=== PATIENT | female | born 1960 | race Caucasian/White ===

== ENCOUNTER 2023-09-30 16:47 | Inpatient (IN) | payer MEDICARE, OTHER ==
--- NOTE | 2023-09-30 17:13 | ED ---
General Adult HPI - General Chief complaint: Psychiatric Symptoms Stated complaint: Mental health eval Time Seen by Provider: 09/30/23 17:00 Source: patient, RN notes reviewed, old records reviewed Mode of arrival: EMS Limitations: no limitations - History of Present Illness Initial comments: This is a 63-year-old female who presents to the emergency department because she got an verbal altercation with her son and daughter and they called EMS and stated that the mother wanted to kill herself. Mother currently denies that end states that she made some statements that maybe it would be okay if God took her early. Patient states she is not suicidal it was just an argument to get out of hand. Patient has any alcohol or drug use. Patient states she has a history of atrial fibrillation but since her open heart surgery in May she has no adelaida gregoria had A-fib and she is off all blood thinners. Patient states after she got agitated she can feel her heart racing. Patient states she is also been experiencing chest pain since yesterday. Patient denies any difficulty breathing or shortness of breath. Patient denies any abdominal pain patient has any nausea or vomiting. Patient currently is denying suicidal ideations or wanting to harm himself or anyone else - Related Data Home Medications Medication Instructions Recorded Confirmed Albuterol Inhaler [Ventolin Hfa 1 - 2 puff INHALATION RT-Q4H PRN 09/30/23 09/30/23 Inhaler] Atorvastatin [Lipitor] 40 mg PO DAILY 09/30/23 09/30/23 Cholecalciferol [Vitamin D3 (25 25 mcg PO DAILY 09/30/23 09/30/23 Mcg = 1000 Iu)] Empagliflozin [Jardiance] 10 mg PO DAILY 09/30/23 09/30/23 FLUoxetine HCL [PROzac] 40 mg PO DAILY 09/30/23 09/30/23 Furosemide [Lasix] 40 mg PO BID@0900,1600 09/30/23 09/30/23 Gabapentin 800 mg PO QID 09/30/23 09/30/23 Losartan Potassium 100 mg PO DAILY 09/30/23 09/30/23 Morphine Sulfate ER [Ms Contin] 15 mg PO Q12HR@0900,2100 09/30/23 09/30/23 Nitroglycerin Sl Tabs [Nitrostat] 0.4 mg SL Q5M PRN 09/30/23 09/30/23 Pantoprazole [Protonix] 40 mg PO AC-BRKFST 09/30/23 09/30/23 amLODIPine [Norvasc] 10 mg PO DAILY 09/30/23 09/30/23 methocarbamoL [Robaxin-750] 750 mg PO Q8H 09/30/23 09/30/23 oxyCODONE-APAP 7.5-325MG [Percocet 1 tab PO QID PRN 09/30/23 09/30/23 7.5-325 mg] Allergies Allergy/AdvReac Type Severity Reaction Status Date / Time adhesive tape Allergy Rash/Hives Verified 09/30/23 19:30 amoxicillin Allergy Anaphylaxis Verified 09/30/23 19:30 ciprofloxacin [From Cipro] Allergy Rash/Hives Verified 09/30/23 19:30 clonidine Allergy Anaphylaxis Verified 09/30/23 19:30 dipyridamole Allergy Anaphylaxis/heart Verified 09/30/23 19:30 [From Persantine] stops dobutamine Allergy Anaphylaxis/heart Verified 09/30/23 19:30 stops Iodinated Contrast Media Allergy Anaphylaxis/heart Verified 09/30/23 19:30 stops metformin Allergy Anaphylaxis Verified 09/30/23 19:30 metoprolol Allergy Anaphylaxis Verified 09/30/23 19:30 silver Allergy Rash/Hives Verified 09/30/23 19:30 [From Tegaderm AG Mesh] clavulanic acid AdvReac Nausea & Verified 09/30/23 19:30 [From Augmentin] Vomiting doxycycline AdvReac "Does not Verified 09/30/23 19:30 work" Review of Systems ROS Statement: Those systems with pertinent positive or pertinent negative responses have been documented in the HPI. ROS Other: All systems not noted in ROS Statement are negative. Past Medical History Past Medical History: Atrial Fibrillation, Chest Pain / Angina, COPD, Diabetes Mellitus, Hyperlipidemia, Hypertension Additional Past Medical History / Comment(s): TBI, CHF, neuropathy, short term memory loss History of Any Multi-Drug Resistant Organisms: MRSA Past Surgical History: Heart Catheterization Additional Past Surgical History / Comment(s): open heart 06/22 Past Psychological History: Anxiety, Depression, Panic Disorder, PTSD Smoking Status: Never smoker Past Alcohol Use History: None Reported Past Drug Use History: None Reported General Exam - General Exam Comments Initial Comments: GENERAL: Patient is well-developed and well-nourished. Patient is nontoxic and well- hydrated and is in no acute distress. ENT: Neck is soft and supple. No significant lymphadenopathy is noted. Oropharynx is clear. Moist mucous membranes. Neck has full range of motion without eliciting any pain. EYES: The sclera were anicteric and conjunctiva were pink and moist. Extraocular movements were intact and pupils were equal round and reactive to light. Eyelids were unremarkable. PULMONARY: Unlabored respirations. Good breath sounds bilaterally. No audible rales rhonchi or wheezing was noted. CARDIOVASCULAR: Patient's heart rate is 145 beats a minute ABDOMEN: Soft and nontender with normal bowel sounds. SKIN: Skin is clear with no lesions or rashes and otherwise unremarkable. NEUROLOGIC: Patient is alert and oriented x3. Cranial nerves II through XII are grossly intact. Motor and sensory are also intact. Normal speech, volume and content. Symmetrical smile. MUSCULOSKELETAL: Normal extremities with adequate strength and full range of motion. LYMPHATICS: No significant lymphadenopathy is noted PSYCHIATRIC: Patient denies suicidal ideations patient denies ever making a suicidal state Limitations: no limitations Course Vital Signs 09/30/23 09/30/23 16:49 18:00 Temperature 99.6 F Pulse Rate 140 H 114 H Respiratory 16 18 Rate Blood Pressure 155/101 151/95 O2 Sat by Pulse 95 98 Oximetry Medical Decision Making - Medical Decision Making EKG shows a sinus tachycardia at 120 bpm parables 163 QRS is 93 QT interval is 296 QTc is 367. Patient EKG shows no ST segment elevation or depression Was pt. sent in by a medical professional or institution (, PA, STEEL UN[employer]ER, urgent care, hospital, or care home...) When possible be specific @ -No Did you speak to anyone other than the patient for history (EMS, parent, family, police, friend...)? What history was obtained from this source @ -No Did you review nursing and triage notes (agree or disagree)? Why? @ -I reviewed and agree with nursing and triage notes Were old charts reviewed (outside hosp., previous admission, EMS record, old EKG, old radiological studies, urgent care reports/EKG's, care home records)? Report findings @ -No old charts were reviewed Differential Diagnosis (chest pain, altered mental status, abdominal pain women, abdominal pain men, vaginal bleeding, weakness, fever, dyspnea, syncope, heada mert, dizziness, GI bleed, back pain, seizure, CVA, palpatations, mental health, musculoskeletal)? @ -Differential Chest Pain: Stable Angina, Unstable Angina, STEMI, NSTEMI Aortic Dissection, Pneumothorax, Musculoskeletal, Esophageal Spasm GERD, Cholecystitis, Pancreatitis, Zoster, this is not meant to be an all-inclusive list. Differential Palpitations Ventricular arrhythmias, atrial arrhythmias, myocardial infarction, anemia, thyrotoxicosis, electrolyte imbalance, hypokalemia, pulmonary embolism, pulmonary disease, drugs, alcohol, anxiety, stress.... This is not meant to be an all-inclusive list. EKG interpreted by me (3pts min.). @ -As above X-rays interpreted by me (1pt min.). @ -Chest x-ray shows no acute normality CT interpreted by me (1pt min.). @ -None done U/S interpreted by me (1pt. min.). @ -None done What testing was considered but not performed or refused? (CT, X-rays, U/S, labs)? Why? @ -None What meds were considered but not given or refused? Why? @ -None Did you discuss the management of the patient with other professionals (professionals i.e. , PA, [employer]ER, lab, RT, psych nurse, social staff worker, long wall shear operator, teacher, training and development officer, test case developer)? Give summary @ -I spoke with Dr. Canela he agreed to admit the patient I admitted the patient consulted cardiology and psych Was smoking cessation discussed for >3mins.? @ -No Was critical care preformed (if so, how long)? @ -No Were there social determinants of health that impacted care today? How? (Homelessness, low income, unemployed, alcoholism, drug addiction, transportation, low edu. Level, literacy, decrease access to med. care, fci, rehab)? @ -No Was there de-escalation of care discussed even if they declined (Discuss DNR or withdrawal of care, Hospice)? DNR status @ -No What co-morbidities impacted this encounter? (DM, HTN, Smoking, COPD, CAD, Cancer, CVA, ARF, Chemo, Hep., AIDS, mental health diagnosis, sleep apnea, morbid obesity)? @ -None Was patient admitted / discharged? Hospital course, mention meds given and route, prescriptions, significant lab abnormalities, going to OR and other pertinent info. @ -Patient was given a milligram of Ativan to relax her and it did calm her down quite a bit. Patient was given Cardizem after Cardizem bolus because of her heart rate being 145. Patient was in atrial fibrillation. Went back into reevaluate the patient once all her lab work is back and patient was much more calm and her heart rate was sinus rhythm under 100 beats a minute Undiagnosed new problem with uncertain prognosis? @ -No Drug Therapy requiring intensive monitoring for toxicity (Heparin, Nitro, Insulin, Cardizem)? @ -No Were any procedures done? @ -No Diagnosis/symptom? @ -A-fib with rapid ventricular Wrist Acute, or Chronic, or Acute on Chronic? @ -Months acute Uncomplicated (without systemic symptoms) or Complicated (systemic symptoms)? @ -Complicated Side effects of treatment? @ -No Exacerbation, Progression, or Severe Exacerbation? @ -No Poses a threat to life or bodily function? How? (Chest pain, [place], [place], pneumonia, PE, COPD, DKA, ARF, appy, cholecystitis, CVA, Diverticulitis, Homicidal, Suicidal, threat to staff... and all critical care pts) @ -Yes this can lead to poor perfusion and endorgan dysfunction Diagnosis/symptom? @ -Suicidal ideations Acute, or Chronic, or Acute on Chronic? @ -Acute Uncomplicated (without systemic symptoms) or Complicated (systemic symptoms)? @ -Complicated Side effects of treatment? @ -None Exacerbation, Progression, or Severe Exacerbation] @ -No Poses a threat to life or bodily function? @ -No - Lab Data Result diagrams: 09/30/23 17:26 09/30/23 17:26 Lab Results 09/30/23 09/30/23 09/30/23 Range/Units 17:26 17:26 17:26 WBC 6.0 (3.8-10.6) k/uL RBC 4.12 (3.80-5.40) m/uL Hgb 12.0 (11.4-16.0) gm/dL Hct 37.9 (34.0-46.0) % MCV 91.9 (80.0-100.0) fL MCH 29.2 (25.0-35.0) pg MCHC 31.7 (31.0-37.0) g/dL RDW 16.0 H (11.5-15.5) % Plt Count 166 (150-450) k/uL MPV 7.7 Neutrophils % 58 % Lymphocytes % 25 % Monocytes % 10 % Eosinophils % 4 % Basophils % 0 % Neutrophils # 3.5 (1.3-7.7) k/uL Lymphocytes # 1.5 (1.0-4.8) k/uL Monocytes # 0.6 (0-1.0) k/uL Eosinophils # 0.3 (0-0.7) k/uL Basophils # 0.0 (0-0.2) k/uL PT 9.6 L (10.0-12.5) sec INR 0.8 (<1.2) APTT 23.2 (22.0-30.0) sec Sodium 136 L (137-145) mmol/L Potassium 4.2 (3.5-5.1) mmol/L Chloride 109 H (98-107) mmol/L Carbon Dioxide 22 (22-30) mmol/L Anion Gap 5 mmol/L BUN 19 H (7-17) mg/dL Creatinine 1.24 H (0.52-1.04) mg/dL Est GFR (CKD-EPI)AfAm 54 (>60 ml/min/1.73 sqM) Est GFR (CKD-EPI)NonAf 47 (>60 ml/min/1.73 sqM) Glucose 153 H (74-99) mg/dL Calcium 8.4 (8.4-10.2) mg/dL Magnesium 2.3 (1.6-2.3) mg/dL Total Bilirubin 0.6 (0.2-1.3) mg/dL AST 40 H (14-36) U/L ALT 23 (4-34) U/L Alkaline Phosphatase 158 H (38-126) U/L Troponin I (0.000-0.034) ng/mL Total Protein 6.3 (6.3-8.2) g/dL Albumin 3.3 L (3.5-5.0) g/dL Urine Opiates Screen (NotDetected) Ur Oxycodone Screen (NotDetected) Urine Methadone Screen (NotDetected) Ur Barbiturates Screen (NotDetected) U Tricyclic Antidepress (NotDetected) Ur Phencyclidine Scrn (NotDetected) Ur Amphetamines Screen (NotDetected) U Methamphetamines Scrn (NotDetected) U Benzodiazepines Scrn (NotDetected) Urine Cocaine Screen (NotDetected) U Marijuana (THC) Screen (NotDetected) Serum Alcohol <10 mg/dL 09/30/23 09/30/23 Range/Units 17:26 18:59 WBC (3.8-10.6) k/uL RBC (3.80-5.40) m/uL Hgb (11.4-16.0) gm/dL Hct (34.0-46.0) % MCV (80.0-100.0) fL MCH (25.0-35.0) pg MCHC (31.0-37.0) g/dL RDW (11.5-15.5) % Plt Count (150-450) k/uL MPV Neutrophils % % Lymphocytes % % Monocytes % % Eosinophils % % Basophils % % Neutrophils # (1.3-7.7) k/uL Lymphocytes # (1.0-4.8) k/uL Monocytes # (0-1.0) k/uL Eosinophils # (0-0.7) k/uL Basophils # (0-0.2) k/uL PT (10.0-12.5) sec INR (<1.2) APTT (22.0-30.0) sec Sodium (137-145) mmol/L Potassium (3.5-5.1) mmol/L Chloride (98-107) mmol/L Carbon Dioxide (22-30) mmol/L Anion Gap mmol/L BUN (7-17) mg/dL Creatinine (0.52-1.04) mg/dL Est GFR (CKD-EPI)AfAm (>60 ml/min/1.73 sqM) Est GFR (CKD-EPI)NonAf (>60 ml/min/1.73 sqM) Glucose (74-99) mg/dL Calcium (8.4-10.2) mg/dL Magnesium (1.6-2.3) mg/dL Total Bilirubin (0.2-1.3) mg/dL AST (14-36) U/L ALT (4-34) U/L Alkaline Phosphatase (38-126) U/L Troponin I 0.025 (0.000-0.034) ng/mL Total Protein (6.3-8.2) g/dL Albumin (3.5-5.0) g/dL Urine Opiates Screen Detected H (NotDetected) Ur Oxycodone Screen Detected H (NotDetected) Urine Methadone Screen Not Detected (NotDetected) Ur Barbiturates Screen Not Detected (NotDetected) U Tricyclic Antidepress Not Detected (NotDetected) Ur Phencyclidine Scrn Not Detected (NotDetected) Ur Amphetamines Screen Not Detected (NotDetected) U Methamphetamines Scrn Not Detected (NotDetected) U Benzodiazepines Scrn Not Detected (NotDetected) Urine Cocaine Screen Not Detected (NotDetected) U Marijuana (THC) Screen Not Detected (NotDetected) Serum Alcohol mg/dL Disposition Clinical Impression: Acute anxiety, Depression, Atrial fibrillation with rapid ventricular response Disposition: ADMITTED IP TO THIS HOSP Referrals: Nonstaff,Physician [Primary Care Provider] - 1-2 days Time of Disposition: 20:24
[2023-09-30 17:37] LABS: Basophils % (A) 0 %; Eosinophils # (A) 0.3 k/uL (0-0.7); Eosinophils % (A) 4 %; HCT 37.9 % (34.0-46.0); Lymphocytes # (A) 1.5 k/uL (1.0-4.8); Lymphocytes % (A) 25 %; MCH 29.2 pg (25.0-35.0); MCHC 31.7 g/dL (31.0-37.0); MCV 91.9 fL (80.0-100.0); Mean Platelet Volume 7.7; Monocytes # (A) 0.6 k/uL (0-1.0); Monocytes % (A) 10 %; Neutrophils # (A) 3.5 k/uL (1.3-7.7); Neutrophils % (A) 58 %; Platelet Count 166 k/uL (150-450); RBC 4.12 m/uL (3.80-5.40)
[2023-09-30 17:45] LABS: INR 0.8 (<1.2); Partial Thromboplastin Time 23.2 sec (22.0-30.0); Prothrombin Time 9.6 sec (10.0-12.5)
[2023-09-30 17:50] LABS: ALT 23 U/L (4-34); AST 40 U/L (14-36); African American GFR (CKD) 54 (>60 ml/min/1.73 sqM); Albumin 3.3 g/dL (3.5-5.0); Alcohol <10 mg/dL; Alkaline Phosphatase 158 U/L (38-126); Anion Gap 5 mmol/L; Blood Urea Nitrogen 19 mg/dL (7-17); Calcium 8.4 mg/dL (8.4-10.2); Carbon Dioxide 22 mmol/L (22-30); Chloride 109 mmol/L (98-107); Glucose 153 mg/dL (74-99); Magnesium 2.3 mg/dL (1.6-2.3); Non-African American GFR(CKD) 47 (>60 ml/min/1.73 sqM); Potassium 4.2 mmol/L (3.5-5.1); Sodium 136 mmol/L (137-145); Total Bilirubin 0.6 mg/dL (0.2-1.3); Total Protein 6.3 g/dL (6.3-8.2)
[2023-09-30] MEDS: LORazepam 2 MG/ML INJ IV STA (17:54)
[2023-09-30] MEDS: DILTIAZEM 125 MG in SODIUM CHLORIDE 0.9% 100 ML IV SCH (17:57)
[2023-09-30] MEDS: DILTIAZEM DRIP BOLUS FROM BAG 1 MG SOLN IV ONE (17:58)
[2023-09-30] MEDS: SODIUM CHLORIDE 0.9% 1,000 ML IV STA (17:59)
--- NOTE | 2023-09-30 19:12 | XR ---
EXAMINATION TYPE: XR chest 2V DATE OF EXAM: 09/30/2023 6:55 PM CLINICAL INDICATION:Female, 63 years old with history of dysrhythmia; PHH COMPARISON: None TECHNIQUE: XR chest 2V Frontal and lateral views of the chest. FINDINGS: Lungs/Pleura: Elevated right diaphragm with suspected with large bowel coursing under the diaphragm b etween the liver the diaphragm. There is no evidence of pleural effusion, focal consolidation, or pne umothorax. Pulmonary vascularity: Unremarkable. Heart/mediastinum: Cardiomediastinal silhouette is enlarged and stable. Left atrial appendage occlusi on device is present. Musculoskeletal: No acute osseous pathology. Midline sternotomy wires are noted. Other findings: None IMPRESSION: No acute cardiopulmonary disease/process.
[2023-09-30 19:41] LABS: Amphetamine Screen,Urine Not Detected (NotDetected); Barbiturate Screen,Urine Not Detected (NotDetected); Benzodiazepines Screen,Urine Not Detected (NotDetected); Cocaine Screen,Urine Not Detected (NotDetected); Methadone Screen, Urine Not Detected (NotDetected); Opiate Screen,Urine Detected (NotDetected); Oxycodone Screen, Urine Detected (NotDetected); Phencyclidine Screen,Urine Not Detected (NotDetected); Tricyclic Antidepressant,Urine Not Detected (NotDetected); Urn Cannabinoid Scrn Not Detected (NotDetected)
[2023-09-30] MEDS ORDERED: NITROGLYCERIN SL TABS 0.4 MG TAB SUBLINGUAL PRN (20:24)
[2023-09-30] MEDS: ASPIRIN 81 MG PO STA (21:39)
[2023-10-01] MEDS: NITROGLYCERIN OINT 1 INCH/GM PACKET TOPICAL SCH (00:02)
--- NOTE | 2023-10-01 00:41 | P.HPIM ---
History of Present Illness H&P Date: 10/01/23 Patient is a 63-year-old female with a PMH of CAD status post CABG, hypertension, hyperlipidemia, COPD, who presents to the emergency room after family confrontation which the patient had reportedly expressed some suicidal ideation. The patient notes that she had gotten into a heated argument with her daughter and her other family members which escalated where she had said some things "in the heat of the moment". She reports no depression or suicidal ideation at the time of interview. She does state however that over the past 2 days she has been experiencing intermittent substernal chest tightness as well as palpitations. Reports that the tightness is 9 out of 10 at maximal intensity, nonradiating, tight and sharp in nature, with some pleuritic features. The pain reportedly lasted for several minutes yesterday in the evening and recurred again today during the argument and has persisted. Does report chronic mild shortness of breath which has worsened over the past 2 days. Denies nausea, vomiting, fever, chills, cough, abdominal pain, diarrhea. Also denies lower extremity swelling or pain. The patient reportedly went into A-fib with RVR in the emergency room and was started on Cardizem infusion. EKG in the emergency room revealed sinus tachycardia at 120 bpm as reviewed by me with T wave flattening in leads V5 to V6. Chest x-ray was unremarkable. Laboratory evaluation was remarkable for troponin 0.025, BUN 19, creatinine 1.24 (no prior available for comparison), sodium 136, with urine toxicology positive for opiates and oxycodone. ED documentation reviewed and case discussed with ED provider. Review of systems: Pertinent positives and negatives as discussed in HPI, a complete review of systems was performed and all other systems are negative. Physical examination: Vital signs reviewed General: non toxic, no distress, appears at stated age, normal weight Derm: no unusual rashes/lesions, warm Head: atraumatic, normocephalic, symmetric Eyes: EOMI, no lid lag, anicteric sclera, pupils equal round reactive to light ENT: Nose and ears atraumatic Neck: No cervical lymphadenopathy, trachea midline, supple Mouth: no lip lesion, mucus membranes moist Cardiovascular: S1S2 reg, no murmur, positive dorsalis pedis pulse bilateral, no edema Lungs: CTA bilateral, no rhonchi, no rales, no accessory muscle use Abdominal: soft, nontender to palpation, no guarding Ext: muscle strength 5 out of 5 in all 4 extremities grossly, no gross muscle atrophy, no contractures, Neuro: CN II-XI grossly intact, no gross focal neuro deficits Psych: Alert, oriented, appropriate affect Assessment: Unstable angina A-fib with RVR, now resolved, patient in sinus rhythm at time of interview Suicidal ideation Chronic conditions: Hypertension, hyperlipidemia, COPD Imaging: EKG in the emergency room revealed sinus tachycardia at 120 bpm as reviewed by me with T wave flattening in leads V5 to V6. Chest x-ray was unremarkable. Data Review: Laboratory evaluation was remarkable for troponin 0.025, BUN 19, creatinine 1.24 (no prior available for comparison), sodium 136, with urine toxicology positive for opiates and oxycodone. Plan: Continue with Cardizem infusion at 5 mg/h Start heparin infusion Cardiology consulted Cardiac monitoring Trend troponin Continue with aspirin and statin Resume patient's home medications Psychiatry consult Obtain Echo DVT prophylaxis: Heparin infusion The patient is admitted with an anticipated less than 2 midnight stay for ev aluation of unstable angina CODE STATUS: Full Code Discussed with: Patient Anticipated discharge place: Home Past Medical History Past Medical History: Atrial Fibrillation, Chest Pain / Angina, COPD, Diabetes Mellitus, Hyperlipidemia, Hypertension Additional Past Medical History / Comment(s): TBI, CHF, neuropathy, short term memory loss History of Any Multi-Drug Resistant Organisms: MRSA Past Surgical History: Heart Catheterization Additional Past Surgical History / Comment(s): open heart 06/22 Past Psychological History: Anxiety, Depression, Panic Disorder, PTSD Smoking Status: Never smoker Past Alcohol Use History: None Reported Past Drug Use History: None Reported - Past Family History Mother Family Medical History: COPD Medications and Allergies Home Medications Medication Instructions Recorded Confirmed Type Albuterol Inhaler [Ventolin Hfa 1 - 2 puff INHALATION RT-Q4H PRN 09/30/23 09/30/23 History Inhaler] Atorvastatin [Lipitor] 40 mg PO DAILY 09/30/23 09/30/23 History Cholecalciferol [Vitamin D3 (25 25 mcg PO DAILY 09/30/23 09/30/23 History Mcg = 1000 Iu)] Empagliflozin [Jardiance] 10 mg PO DAILY 09/30/23 09/30/23 History FLUoxetine HCL [PROzac] 40 mg PO DAILY 09/30/23 09/30/23 History Furosemide [Lasix] 40 mg PO BID@0900,1600 09/30/23 09/30/23 History Gabapentin 800 mg PO QID 09/30/23 09/30/23 History Losartan Potassium 100 mg PO DAILY 09/30/23 09/30/23 History Morphine Sulfate ER [Ms Contin] 15 mg PO Q12HR@0900,2100 09/30/23 09/30/23 History Nitroglycerin Sl Tabs [Nitrostat] 0.4 mg SL Q5M PRN 09/30/23 09/30/23 History Pantoprazole [Protonix] 40 mg PO AC-BRKFST 09/30/23 09/30/23 History amLODIPine [Norvasc] 10 mg PO DAILY 09/30/23 09/30/23 History methocarbamoL [Robaxin-750] 750 mg PO Q8H 09/30/23 09/30/23 History oxyCODONE-APAP 7.5-325MG [Percocet 1 tab PO QID PRN 09/30/23 09/30/23 History 7.5-325 mg] Allergies Allergy/AdvReac Type Severity Reaction Status Date / Time adhesive tape Allergy Rash/Hives Verified 09/30/23 19:30 amoxicillin Allergy Anaphylaxis Verified 09/30/23 19:30 ciprofloxacin [From Cipro] Allergy Rash/Hives Verified 09/30/23 19:30 clonidine Allergy Anaphylaxis Verified 09/30/23 19:30 dipyridamole Allergy Anaphylaxis/heart Verified 09/30/23 19:30 [From Persantine] stops dobutamine Allergy Anaphylaxis/heart Verified 09/30/23 19:30 stops Iodinated Contrast Media Allergy Anaphylaxis/heart Verified 09/30/23 19:30 stops metformin Allergy Anaphylaxis Verified 09/30/23 19:30 metoprolol Allergy Anaphylaxis Verified 09/30/23 19:30 silver Allergy Rash/Hives Verified 09/30/23 19:30 [From Tegaderm AG Mesh] clavulanic acid AdvReac Nausea & Verified 09/30/23 19:30 [From Augmentin] Vomiting doxycycline AdvReac "Does not Verified 09/30/23 19:30 work" Physical Exam Vitals: Vital Signs Temp Pulse Resp BP Pulse Ox 10/01/23 00:00 92 18 160/86 98 09/30/23 22:00 92 18 149/82 97 09/30/23 18:00 114 H 18 151/95 98 09/30/23 16:49 99.6 F 140 H 16 155/101 95 Intake and Output 09/30/23 09/30/23 10/01/23 14:59 22:59 06:59 Other: Weight 64.864 kg Results CBC & Chem 7: 09/30/23 17:26 09/30/23 17:26 Labs: Abnormal Lab Results - Last 24 Hours (Table) 09/30/23 09/30/23 09/30/23 Range/Units 17:26 17:26 17:26 RDW 16.0 H (11.5-15.5) % PT 9.6 L (10.0-12.5) sec Sodium 136 L (137-145) mmol/L Chloride 109 H (98-107) mmol/L BUN 19 H (7-17) mg/dL Creatinine 1.24 H (0.52-1.04) mg/dL Glucose 153 H (74-99) mg/dL AST 40 H (14-36) U/L Alkaline Phosphatase 158 H (38-126) U/L Troponin I (0.000-0.034) ng/mL Albumin 3.3 L (3.5-5.0) g/dL Urine Opiates Screen (NotDetected) Ur Oxycodone Screen (NotDetected) 09/30/23 09/30/23 Range/Units 18:59 20:56 RDW (11.5-15.5) % PT (10.0-12.5) sec Sodium (137-145) mmol/L Chloride (98-107) mmol/L BUN (7-17) mg/dL Creatinine (0.52-1.04) mg/dL Glucose (74-99) mg/dL AST (14-36) U/L Alkaline Phosphatase (38-126) U/L Troponin I 0.035 H* (0.000-0.034) ng/mL Albumin (3.5-5.0) g/dL Urine Opiates Screen Detected H (NotDetected) Ur Oxycodone Screen Detected H (NotDetected)
[2023-10-01] MEDS: HEPARIN SODIUM 1,000 UN/ML (10ML VL) IV ONE (01:16)
[2023-10-01] MEDS: HEPARIN SOD,PORK IN 0.45% NACL 25,000 UNIT in 0.45% NACL 1 250ML.BAG IV SCH (01:18)
[2023-10-01] MEDS: methocarbamoL 750 MG TAB PO SCH (01:20)
[2023-10-01] MEDS: ATORVASTATIN 80 MG TAB PO STA (01:20)
[2023-10-01] MEDS: oxyCODONE-APAP 7.5-325MG 1 EACH TAB PO PRN (01:26)
[2023-10-01 01:38] LABS: Anisocytosis Slight; Basophils % (A) 1 %; Eosinophils # (A) 0.3 k/uL (0-0.7); Eosinophils % (A) 6 %; HCT 35.1 % (34.0-46.0); HGB 11.1 gm/dL (11.4-16.0); Lymphocytes # (A) 1.7 k/uL (1.0-4.8); Lymphocytes % (A) 35 %; MCH 29.5 pg (25.0-35.0); MCHC 31.5 g/dL (31.0-37.0); MCV 93.4 fL (80.0-100.0); Mean Platelet Volume 7.9; Monocytes # (A) 0.4 k/uL (0-1.0); Monocytes % (A) 7 %; Neutrophils # (A) 2.3 k/uL (1.3-7.7); Neutrophils % (A) 48 %; Platelet Count 140 k/uL (150-450); RBC 3.76 m/uL (3.80-5.40); RDW 16.1 % (11.5-15.5); WBC 4.9 k/uL (3.8-10.6)
[2023-10-01 01:48] LABS: INR 0.9 (<1.2); Partial Thromboplastin Time 23.2 sec (22.0-30.0); Prothrombin Time 10.1 sec (10.0-12.5)
[2023-10-01 09:31] LABS: Partial Thromboplastin Time 36.8 sec (22.0-30.0)
[2023-10-01] MEDS: GABAPENTIN 400 MG CAP PO SCH (10:05)
[2023-10-01] MEDS: LOSARTAN 50 MG TAB PO SCH (10:05)
[2023-10-01] MEDS: PANTOPRAZOLE 40 MG TABLET PO SCH (10:05)
[2023-10-01] MEDS: ASPIRIN 325 MG TAB PO SCH (10:06)
[2023-10-01] MEDS: DAPAGLIFLOZIN PROPANEDIOL 5 MG TABLET PO SCH (10:06)
[2023-10-01] MEDS: FLUoxetine HCL 20 MG CAP PO SCH (10:06)
[2023-10-01] MEDS: amLODIPine 10 MG TAB PO SCH (10:07)
[2023-10-01] MEDS: CHOLECALCIFEROL 25 MCG (1000 IU) TABLET PO SCH (10:07)
[2023-10-01] MEDS: FUROSEMIDE 40 MG TAB PO SCH (10:07)
[2023-10-01] MEDS: HEPARIN SODIUM 1,000 UN/ML (10ML VL) IV PRN (10:43)
--- NOTE | 2023-10-01 10:49 | P.CRDCN ---
History of Present Illness Consult date: 10/01/23 Reason for Consult (text): Atrial fibrillation with RVR, chest pain History of present illness: History of present illness: This is a 63-year-old female that follows with a revolving field assembler out of [facility] and she gives history of having TAVR done at and it "blew apart" in May and she was transferred to [facility] where she underwent a valve replacement as well as two-vessel CABG, history of atrial fibrillation not on anticoagulation, diabetes. Thomas is in [facility] as she is staying with her daughter for the past 5 days. She states she has had an aching pain for the last couple of days in her chest and it became significantly worse yesterday at a #9. She states the pain was in her mid chest area felt like she was punched. It occurred while she was watching TV and she also had difficulty in breathing. Pain radiated to her back. She denies any radiation to her arms. Patient complaining of nausea. She also states that she has had some right foot edema for the past 2 days. No syncopal episodes. The symptoms as described occurred this morning while in the emergency center. Patient has been started on a Cardizem drip and heparin drip. Patient is seen today in the emergency center waiting for bed on the cardiac stepdown unit. EKG sinus rhythm x 2 Chest x-ray: No acute process WBC 4.9, hemoglobin 11.1, platelet count 140. D-dimer 5.91. Troponin is 0.025, 0.035, 0.037. Alkaline phosphatase 158, AST 40. BUN 19 and creatinine 1.24. Urine drug screen opiates positive, oxycodone positive. Serum alcohol level less than 10. Home cardiac medications: Amlodipine 10 mg daily, atorvastatin 40 mg daily, Jardiance 10 mg daily, Lasix 40 mg twice daily, losartan 100 mg daily, Nitrostat as needed. Review Of Systems: At the time of my exam: CONSTITUTIONAL: Denies fever or chills. HEENT: Denies blurred vision, vision changes, or eye pain. Denies hemoptysis CARDIOVASCULAR: Denies chest pain. Denies orthopnea. Denies PND. Denies palpitations RESPIRATORY: Denies shortness of breath. GASTROINTESTINAL: Denies abdominal pain. Denies nausea or vomiting. HEMATOLOGIC: Denies bleeding disorders. GENITOURINARY: Denies any blood in urine. SKIN: Denies pruitis. Denies rash. Physical examination: Gen: This is a 63-year-old female in no acute distress. VS: reviewed, blood pressure 153/89, heart rate 88, pulse ox 99% on room air. HEENT: Head is atraumatic, normocephalic. Pupils equal, round. Sclerae is anicteric. NECK: Supple. No JVD. LUNGS: Clear to auscultation. No wheezes or rhonchi. No intercostal retractions. HEART: Regular rate and rhythm. ABDOMEN: Soft No tenderness. EXTREMITIES: No pedal edema. No calf tenderness. NEUROLOGICAL: Patient is awake, alert and oriented x3. Assessment: Chest pain with elevated troponins, rule out acute coronary syndrome Elevated troponins possibly due to acute kidney injury Elevated D-dimer Coronary artery disease with previous two-vessel CABG Valvular heart disease with previous TAVR followed by open valve replacement Hypertension Hyperlipidemia History of atrial fibrillation Plan: Resume patient's home cardiac medications Discontinue Cardizem drip Continue patient on heparin drip Attending to follow-up with elevated D-dimer Obtain 2-D echocardiogram and Doppler study to assess cardiac structure and func tion Obtain records from Recommend patient transfer to to be with her primary revolving field assembler. Further recommendations to follow based upon clinical course Thank you kindly for this consultation. Nurse practitioner note has been reviewed, I agree with documented findings and plan of care. Patient was seen and examined. Past Medical History Past Medical History: Atrial Fibrillation, Chest Pain / Angina, COPD, Diabetes Mellitus, Hyperlipidemia, Hypertension Additional Past Medical History / Comment(s): TBI, CHF, neuropathy, short term memory loss History of Any Multi-Drug Resistant Organisms: MRSA Past Surgical History: Heart Catheterization Additional Past Surgical History / Comment(s): open heart 06/22 Past Psychological History: Anxiety, Depression, Panic Disorder, PTSD Smoking Status: Never smoker Past Alcohol Use History: None Reported Past Drug Use History: None Reported - Past Family History Mother Family Medical History: COPD Medications and Allergies Home Medications Medication Instructions Recorded Confirmed Type Albuterol Inhaler [Ventolin Hfa 1 - 2 puff INHALATION RT-Q4H PRN 09/30/23 History Inhaler] Atorvastatin [Lipitor] 40 mg PO DAILY 09/30/23 09/30/23 History Cholecalciferol [Vitamin D3 (25 25 mcg PO DAILY 09/30/23 09/30/23 History Mcg = 1000 Iu)] Empagliflozin [Jardiance] 10 mg PO DAILY 09/30/23 09/30/23 History FLUoxetine HCL [PROzac] 40 mg PO DAILY 09/30/23 09/30/23 History Furosemide [Lasix] 40 mg PO BID@0900,1600 09/30/23 09/30/23 History Gabapentin 800 mg PO QID 09/30/23 09/30/23 History Losartan Potassium 100 mg PO DAILY 09/30/23 09/30/23 History Morphine Sulfate ER [Ms Contin] 15 mg PO Q12HR@0900,2100 09/30/23 09/30/23 History Nitroglycerin Sl Tabs [Nitrostat] 0.4 mg SL Q5M PRN 09/30/23 09/30/23 History Pantoprazole [Protonix] 40 mg PO AC-BRKFST 09/30/23 09/30/23 History amLODIPine [Norvasc] 10 mg PO DAILY 09/30/23 09/30/23 History methocarbamoL [Robaxin-750] 750 mg PO Q8H 09/30/23 09/30/23 History oxyCODONE-APAP 7.5-325MG [Percocet 1 tab PO QID PRN 09/30/23 09/30/23 History 7.5-325 mg] Allergies Allergy/AdvReac Type Severity Reaction Status Date / Time adhesive tape Allergy Rash/Hives Verified 09/30/23 19:30 amoxicillin Allergy Anaphylaxis Verified 09/30/23 19:30 ciprofloxacin [From Cipro] Allergy Rash/Hives Verified 09/30/23 19:30 clonidine Allergy Anaphylaxis Verified 09/30/23 19:30 dipyridamole Allergy Anaphylaxis/heart Verified 09/30/23 19:30 [From Persantine] stops dobutamine Allergy Anaphylaxis/heart Verified 09/30/23 19:30 stops Iodinated Contrast Media Allergy Anaphylaxis/heart Verified 09/30/23 19:30 stops metformin Allergy Anaphylaxis Verified 09/30/23 19:30 metoprolol Allergy Anaphylaxis Verified 09/30/23 19:30 silver Allergy Rash/Hives Verified 09/30/23 19:30 [From Tegaderm AG Mesh] clavulanic acid AdvReac Nausea & Verified 09/30/23 19:30 [From Augmentin] Vomiting doxycycline AdvReac "Does not Verified 09/30/23 19:30 work" Physical Exam Vitals: Vital Signs Temp Pulse Resp BP Pulse Ox 10/01/23 04:55 82 16 133/64 94 L 10/01/23 02:00 88 16 148/93 96 10/01/23 01:20 94 18 158/96 98 10/01/23 00:00 92 18 160/86 98 09/30/23 22:00 92 18 149/82 97 09/30/23 18:00 114 H 18 151/95 98 09/30/23 16:49 99.6 F 140 H 16 155/101 95 Intake and Output 09/30/23 10/01/23 10/01/23 22:59 06:59 14:59 Other: Weight 64.864 kg Results 10/01/23 01:03 09/30/23 17:26 Cardiac Enzymes 09/30/23 09/30/23 09/30/23 Range/Units 17:26 17:26 20:56 AST 40 H (14-36) U/L Troponin I 0.025 0.035 H* (0.000-0.034) ng/mL 10/01/23 Range/Units 00:25 AST (14-36) U/L Troponin I 0.037 H* (0.000-0.034) ng/mL Coagulation 09/30/23 10/01/23 Range/Units 17:26 01:03 PT 9.6 L 10.1 (10.0-12.5) sec APTT 23.2 23.2 (22.0-30.0) sec CBC 09/30/23 10/01/23 Range/Units 17:26 01:03 WBC 6.0 4.9 (3.8-10.6) k/uL RBC 4.12 3.76 L (3.80-5.40) m/uL Hgb 12.0 11.1 L (11.4-16.0) gm/dL Hct 37.9 35.1 (34.0-46.0) % Plt Count 166 140 L (150-450) k/uL Comprehensive Metabolic Panel 09/30/23 Range/Units 17:26 Sodium 136 L (137-145) mmol/L Potassium 4.2 (3.5-5.1) mmol/L Chloride 109 H (98-107) mmol/L Carbon Dioxide 22 (22-30) mmol/L BUN 19 H (7-17) mg/dL Creatinine 1.24 H (0.52-1.04) mg/dL Glucose 153 H (74-99) mg/dL Calcium 8.4 (8.4-10.2) mg/dL AST 40 H (14-36) U/L ALT 23 (4-34) U/L Alkaline Phosphatase 158 H (38-126) U/L Total Protein 6.3 (6.3-8.2) g/dL Albumin 3.3 L (3.5-5.0) g/dL Current Medications Generic Name Dose Route Start Last Admin Trade Name Freq PRN Reason Stop Dose Admin Amlodipine Besylate 10 mg 10/01/23 09:00 Amlodipine 10 Mg Tab PO DAILY [facility] Aspirin 325 mg 10/01/23 09:00 Aspirin 325 Mg Tab PO DAILY [facility] Atorvastatin Calcium 80 mg 10/01/23 21:00 Atorvastatin 80 Mg Tab PO HS [facility] Cholecalciferol 25 mcg 10/01/23 09:00 Cholecalciferol 25 Mcg (1000 Iu) Tablet PO DAILY [facility] Dapagliflozin 5 mg 10/01/23 09:00 Dapagliflozin Propanediol 5 Mg Tablet PO DAILY [facility] Fluoxetine HCl 40 mg 10/01/23 09:00 Fluoxetine Hcl 20 Mg Cap PO DAILY [facility] Furosemide 40 mg 10/01/23 09:00 Furosemide 40 Mg Tab PO BID@0900,1600 [facility] Gabapentin 800 mg 10/01/23 09:00 Gabapentin 400 Mg Cap PO QID [facility] Heparin Sodium (Porcine) 0 unit 10/01/23 00:41 Heparin Sodium 1,000 Un/Ml (10ml Vl) IV PER PROTOCOL PRN Low PTT Protocol Diltiazem HCl 125 mg/ Sodium 125 mls @ 5 mls/hr 09/30/23 17:15 09/30/23 17:57 Chloride IV 5 mg/hr .Q24H MAX 5 mls/hr Administration 5 MG/HR Heparin Sodium/Sodium Chloride 250 mls @ 7.784 mls/hr 10/01/23 00:45 10/01/23 01:18 25,000 unit/ Sodium Chloride IV 12 units/kg/hr .Q24H MAX 7.784 mls/hr Administration Protocol 12 UNITS/KG/HR Losartan Potassium 100 mg 10/01/23 09:00 Losartan 50 Mg Tab PO DAILY MAX Methocarbamol 750 mg 10/01/23 00:45 10/01/23 01:20 Methocarbamol 750 Mg Tab PO 750 mg Q8HR MAX Administration Nitroglycerin 0.4 mg 09/30/23 20:24 Nitroglycerin Sl Tabs 0.4 Mg Tab SUBLINGUAL Q5M PRN Chest Pain Nitroglycerin 1 inch 10/01/23 00:00 10/01/23 06:00 Nitroglycerin Oint 1 Inch/Gm Packet TOPICAL 1 inch Q6HR MXA Administration Oxycodone/Acetaminophen 1 each 10/01/23 00:42 10/01/23 01:26 Oxycodone-Apap 7.5-325mg 1 Each Tab PO 1 each QID PRN Administration Pain Pantoprazole Sodium 40 mg 10/01/23 07:30 Pantoprazole 40 Mg Tablet PO AC-BRKFST [facility] Intake and Output 09/30/23 10/01/23 10/01/23 22:59 06:59 14:59 Other: Weight 64.864 kg 10/01/23 01:03 09/30/23 17:26
--- NOTE | 2023-10-01 15:15 | P.CN ---
Psychiatric Consult - . Consult date: 10/01/23 Consult:: 10/01/23 15:13 CONSULTATION Reason for consult: Depression and suicidal thoughts. identifying Data: The patient is 63 years old, , white female, who lives in [place], [place] in a Reason for admission: Chest pain History of present illness: The patient was brought to the emergency department with symptoms of chest pain. After initial examination and other work-up, the patient is being transferred to medical floor. During this evaluation, the patient denied feeling depressed and suicidal. The patients daughter noted that the patient was suicidal and had a steak knife in her hand. The patient disputes with this and stated that she does not even know where the steak knife is kept. She denied any symptoms of feeling depressed, worthlessness, hopelessness, suicidal or homicidal. She noted that during depression, she experiences, crying spells, headache, excessive sleep, decreased appetite. She noted none of these symptoms at this time. She noted that last time she was depressed, approximately 2 years ago after her father . She noted that she sees Dr. Menjivar and her counselor Lyndsey. She sees them once in 6 months. She missed her last appointment. She has to setup an appointment with them soon. The patient noted that she takes Cymbalta and Prozac. Home medications do not show these medications. She indicated that her Depression and anxiety started 10 years ago. She claims to be seeing Dr. Menjivar at his office on [facility]. She denied and past psychiatric treatment prior to age 52. She denied any past psychiatric admissions. She denied any h/o suicidal or homicidal ideations or behavior. On leading questions denied depression, anxiety, hopelessness, worthlessness, suicidal or homicidal ideations. The patient denied symptoms of paranoia, or any other delusional thinking, A/V hallucinations. Current and past medications: As stated above. Out-pt follow-up: As stated above. History of past psychiatric illness: No other than stated in HPI. Past medical history: CAD status post CABG, hypertension, hyperlipidemia, COPD Substance abuse history: None Family history of psychiatric disorder: Her uncle committed suicide. Details not known. MSE: Alert and attentive Orientation X3. Pleasant and cooperative. Psychomotor activity: Normal Speech: Normal tone, quality, and quantity Mood: Fine. Affect: Excited. SI or HI: None Thought content: Normal Thought process: Normal Perceptual disturbance: Normal Cognition: Intact Judgement and Insight: Intact Diagnosis: No acute psycho-pathology at this time. H/O Depression, Anxiety, PTSD, Recommendations: Medication recommendations: The patients out-patient can be reinstated depending on MS, and, if no medical contraindications. The patient does not meet in-patient criteria for psychiatric admission sandra xiao Disposition recommendations: If MS stays stable then patient to be discharged to Dr. Menjivar. Office for out-pt follow-up after medical stabilization. Herber Davila MD Psychiatry
[2023-10-01 15:35] LABS: Chol/HDL Ratio 6.09 Ratio; LDL Cholesterol,Calculated 182.8 mg/dL (0.0-131.0)
--- NOTE | 2023-10-01 16:20 | US ---
EXAMINATION TYPE: US venous doppler duplex LE BI DATE OF EXAM: 10/01/2023 2:59 PM COMPARISON: NONE CLINICAL INDICATION: Female, 63 years old with history of leg pain; right foot swelling, patient stat es h/o clot in legs, arms and lungs previously but not on any thinners. SIDE PERFORMED: Bilateral TECHNIQUE: The lower extremity deep venous system is examined utilizing real time linear array sonog rashad with graded compression, doppler sonography and color-flow sonography. VESSELS IMAGED: Common Femoral Vein Deep Femoral Vein Greater Saphenous Vein * Femoral Vein Popliteal Vein Small Saphenous Vein * Proximal Calf Veins (* superficial vessels) Right Leg: Negative for DVT Left Leg: Negative for DVT IMPRESSION: Grayscale, color doppler, spectral doppler imaging performed of the deep veins of the lo wer extremities. There is normal flow, compressibility, vascular waveforms.
--- NOTE | 2023-10-01 16:31 | P.PN ---
Subjective Progress Note Date: 10/01/23 Feels better, no chest pain no abdominal pain no nausea no vomiting no dizziness. Remains afebrile. Does not appear to be in distress. Objective - Vital Signs Vital signs: Vital Signs Temp 98.2 F 10/01/23 12:22 Pulse 82 10/01/23 12:22 Resp 17 10/01/23 12:22 BP 149/96 10/01/23 12:22 Pulse Ox 98 10/01/23 12:22 FiO2 Intake & Output 09/30/23 10/01/23 10/01/23 18:59 06:59 18:59 Intake Total 73.559 Balance 73.559 Weight 64.864 kg Intake: Intake, IV Titration 73.559 Amount Heparin Sod,Pork in 0.45% 73.559 NaCl 25,000 unit In 0.45 % NaCl 1 250ml.bag @ 12 UNITS/KG/HR 7.784 mls/hr IV .Q24H [facility] Rx#: [id number] - Exam General: non toxic, no distress, appears at stated age, normal weight Derm: no unusual rashes/lesions, warm Head: atraumatic, normocephalic, symmetric Eyes: EOMI, no lid lag, anicteric sclera, pupils equal round reactive to light ENT: Nose and ears atraumatic Neck: No cervical lymphadenopathy, trachea midline, supple Mouth: no lip lesion, mucus membranes moist Cardiovascular: S1S2 reg, no murmur, positive dorsalis pedis pulse bilateral, no edema Lungs: CTA bilateral, no rhonchi, no rales, no accessory muscle use Abdominal: soft, nontender to palpation, no guarding Ext: muscle strength 5 out of 5 in all 4 extremities grossly, no gross muscle atrophy, no contractures, Neuro: CN II-XI grossly intact, no gross focal neuro deficits Psych: Alert, oriented, appropriate affect - Labs CBC & Chem 7: 10/01/23 01:03 09/30/23 17:26 Labs: Abnormal Lab Results - Last 24 Hours (Table) 09/30/23 09/30/23 09/30/23 Range/Units 17:26 17:26 17:26 RBC (3.80-5.40) m/uL Hgb (11.4-16.0) gm/dL RDW 16.0 H (11.5-15.5) % Plt Count (150-450) k/uL PT 9.6 L (10.0-12.5) sec APTT (22.0-30.0) sec D-Dimer (<0.60) mg/L FEU Sodium 136 L (137-145) mmol/L Chloride 109 H (98-107) mmol/L BUN 19 H (7-17) mg/dL Creatinine 1.24 H (0.52-1.04) mg/dL Glucose 153 H (74-99) mg/dL AST 40 H (14-36) U/L Alkaline Phosphatase 158 H (38-126) U/L Troponin I (0.000-0.034) ng/mL Albumin 3.3 L (3.5-5.0) g/dL Triglycerides (0.00-149.00) mg/dL Cholesterol (0.00-200.00) mg/dL LDL Cholesterol, Calc (0.0-131.0) mg/dL VLDL Cholesterol, Calc (5.00-40.00) mg/dL Urine Opiates Screen (NotDetected) Ur Oxycodone Screen (NotDetected) 09/30/23 09/30/23 10/01/23 Range/Units 18:59 20:56 00:25 RBC (3.80-5.40) m/uL Hgb (11.4-16.0) gm/dL RDW (11.5-15.5) % Plt Count (150-450) k/uL PT (10.0-12.5) sec APTT (22.0-30.0) sec D-Dimer (<0.60) mg/L FEU Sodium (137-145) mmol/L Chloride (98-107) mmol/L BUN (7-17) mg/dL Creatinine (0.52-1.04) mg/dL Glucose (74-99) mg/dL AST (14-36) U/L Alkaline Phosphatase (38-126) U/L Troponin I 0.035 H* 0.037 H* (0.000-0.034) ng/mL Albumin (3.5-5.0) g/dL Triglycerides (0.00-149.00) mg/dL Cholesterol (0.00-200.00) mg/dL LDL Cholesterol, Calc (0.0-131.0) mg/dL VLDL Cholesterol, Calc (5.00-40.00) mg/dL Urine Opiates Screen Detected H (NotDetected) Ur Oxycodone Screen Detected H (NotDetected) 10/01/23 10/01/23 10/01/23 Range/Units 01:03 08:00 10:35 RBC 3.76 L (3.80-5.40) m/uL Hgb 11.1 L (11.4-16.0) gm/dL RDW 16.1 H (11.5-15.5) % Plt Count 140 L (150-450) k/uL PT (10.0-12.5) sec APTT 36.8 H (22.0-30.0) sec D-Dimer 5.91 H (<0.60) mg/L FEU Sodium (137-145) mmol/L Chloride (98-107) mmol/L BUN (7-17) mg/dL Creatinine (0.52-1.04) mg/dL Glucose (74-99) mg/dL AST (14-36) U/L Alkaline Phosphatase (38-126) U/L Troponin I (0.000-0.034) ng/mL Albumin (3.5-5.0) g/dL Triglycerides 206.00 H (0.00-149.00) mg/dL Cholesterol 268.00 H (0.00-200.00) mg/dL LDL Cholesterol, Calc 182.8 H (0.0-131.0) mg/dL VLDL Cholesterol, Calc 41.20 H (5.00-40.00) mg/dL Urine Opiates Screen (NotDetected) Ur Oxycodone Screen (NotDetected) Assessment and Plan Plan: 1. A-fib with RVR, now resolved, cardiology on board, supportive care. Discontinue Cardizem drip. Continue heparin drip. Pending 2D echo. Minimal low send troponin Suicidal ideation: Psychiatry following Chronic conditions: Hypertension, hyperlipidemia, COPD Cardiac monitoring Continue with aspirin and statin 2. Coronary disease status post CABG: Continue home medications. 3. Essential hypertension: Continue patient medications. 4. Aortic valve disease status post TAVR: Monitor. 5. Hyperlipidemia: Continue statin 6. Elevated D-dimer unknown significance: Pending CT chest to rule out PE and lower extremity Dopplers. DVT prophylaxis: Heparin infusion Pending transfer to higher level of care Discussed with patient's primary food processing plant manager Dr.Kalata Dr. Driver Patient accepted at [facility] pending bed placement. We will also attempt [facility]
--- NOTE | 2023-10-01 17:05 | P.DS ---
Providers Date of admission: 09/30/23 20:28 Expected date of discharge: 10/01/23 Attending physician: Ana Cristina Canela MD Consults: 09/30/23 20:25 Consult Physician Urgent Consulting Provider: [facility] Consult Reason/Comments: A-fib with rapid ventricular response, chest pain Do you want consulting provider notified?: Yes 09/30/23 20:27 Consult Physician Urgent Consulting Provider: [facility] Consult Reason/Comments: Depression Do you want consulting provider notified?: Already Contacted Primary care physician: Physician Nonstaff Hospital Course: Diagnosis at discharge: 1. A-fib with RVR, now resolved, cardiology on board, supportive care. Discontinue Cardizem drip. Continue heparin drip. Pending 2D echo. Minimal low send troponin Suicidal ideation: Psychiatry following Chronic conditions: Hypertension, hyperlipidemia, COPD Cardiac monitoring Continue with aspirin and statin 2. Coronary disease status post CABG: Continue home medications. 3. Essential hypertension: Continue patient medications. 4. Aortic valve disease status post TAVR: Monitor. 5. Hyperlipidemia: Continue statin 6. Elevated D-dimer unknown significance: Pending CT chest to rule out PE and lower extremity Dopplers. Patient is a 63-year-old female with a PMH of CAD status post CABG, hypertension, hyperlipidemia, COPD, who presents to the emergency room after family confrontation which the patient had reportedly expressed some suicidal ideation. The patient notes that she had gotten into a heated argument with her daughter and her other family members which escalated where she had said some things "in the heat of the moment". She reports no depression or suicidal ideation at the time of interview. She does state however that over the past 2 days she has been experiencing intermittent substernal chest tightness as well as palpitations. Reports that the tightness is 9 out of 10 at maximal intensity, nonradiating, tight and sharp in nature, with some pleuritic features. The pain reportedly lasted for several minutes yesterday in the evening and recurred again today during the argument and has persisted. Does report chronic mild shortness of breath which has worsened over the past 2 days. Denies nausea, vomiting, fever, chills, cough, abdominal pain, diarrhea. Also denies lower extremity swelling or pain. The patient reportedly went into A-fib with RVR in the emergency room and was started on Cardizem infusion. EKG in the emergency room revealed sinus tachycardia at 120 bpm as reviewed by me with T wave flattening in leads V5 to V6. Chest x-ray was unremarkable. Laboratory evaluation was remarkable for troponin 0.025, BUN 19, creatinine 1.24 (no prior available for comparison), sodium 136, with urine toxicology positive for opiates and oxycodone. ED documentation reviewed and case discussed with ED provider. Review of systems: Pertinent positives and negatives as discussed in HPI, a complete review of systems was performed and all other systems are negative. Hospital course and treatment: Patient was admitted to the hospital approximately atrial fibrillation with RVR, extensive heart history including aortic valve disease status post TAVR, coronary disease status post CABG. Placed on Cardizem drip titrated down. Heparin drip. 2D echo pending. Elevated D-dimer pending CT chest to rule out PE lower extremity Dopplers. Minimal elevation in troponin. Discussed with our cardiology here and with patient's primary rabbit breeder who both recommended higher level of care. Pending transfer to higher level of care. Patient Condition at Discharge: Fair Plan - Discharge Summary New Discharge Prescriptions: Continue Cholecalciferol [Vitamin D3 (25 Mcg = 1000 Iu)] 25 mcg PO DAILY Albuterol Inhaler [Ventolin Hfa Inhaler] 1 - 2 puff INHALATION RT-Q4H PRN PRN Reason: Shortness Of Breath Morphine Sulfate ER [Ms Contin] 15 mg PO Q12HR@0900,2100 methocarbamoL [Robaxin-750] 750 mg PO Q8H Gabapentin 800 mg PO QID Nitroglycerin Sl Tabs [Nitrostat] 0.4 mg SL Q5M PRN PRN Reason: Chest Pain FLUoxetine HCL [PROzac] 40 mg PO DAILY Empagliflozin [Jardiance] 10 mg PO DAILY Furosemide [Lasix] 40 mg PO BID@0900,1600 oxyCODONE-APAP 7.5-325MG [Percocet 7.5-325 mg] 1 tab PO QID PRN PRN Reason: Pain Pantoprazole [Protonix] 40 mg PO AC-BRKFST amLODIPine [Norvasc] 10 mg PO DAILY Atorvastatin [Lipitor] 40 mg PO DAILY Losartan Potassium 100 mg PO DAILY Discharge Medication List Albuterol Inhaler [Ventolin Hfa Inhaler] 1 - 2 puff INHALATION RT-Q4H PRN 09/30/23 [History] Atorvastatin [Lipitor] 40 mg PO DAILY 09/30/23 [History] Cholecalciferol [Vitamin D3 (25 Mcg = 1000 Iu)] 25 mcg PO DAILY 09/30/23 [History] Empagliflozin [Jardiance] 10 mg PO DAILY 09/30/23 [History] FLUoxetine HCL [PROzac] 40 mg PO DAILY 09/30/23 [History] Furosemide [Lasix] 40 mg PO BID@0900,1600 09/30/23 [History] Gabapentin 800 mg PO QID 09/30/23 [History] Losartan Potassium 100 mg PO DAILY 09/30/23 [History] Morphine Sulfate ER [Ms Contin] 15 mg PO Q12HR@0900,2100 09/30/23 [History] Nitroglycerin Sl Tabs [Nitrostat] 0.4 mg SL Q5M PRN 09/30/23 [History] Pantoprazole [Protonix] 40 mg PO AC-BRKFST 09/30/23 [History] amLODIPine [Norvasc] 10 mg PO DAILY 09/30/23 [History] methocarbamoL [Robaxin-750] 750 mg PO Q8H 09/30/23 [History] oxyCODONE-APAP 7.5-325MG [Percocet 7.5-325 mg] 1 tab PO QID PRN 09/30/23 [History] Follow up Appointment(s)/Referral(s): Nonstaff,Physician [Primary Care Provider] - 1-2 days
--- NOTE | 2023-10-01 17:35 | CA ---
Transthoracic Echo Report Name: Kaila Cunningham Age: 63 Gender: F : 1960 Exam Date: 10/01/2023 11:16 Exam Location: [facility] Ht (in): 68 Wt (lb): 143 Ordering Physician: Ana Cristina Canela MD Attending/Referring Phys: Set Up Technician Senia Mayo RDCS Procedure CPT: Indications: unstable angina Cardiac Hx: CABG, AOV REPLACED Technical Quality: Good Contrast 1: Total Dose (mL): Contrast 2: Total Dose (mL): MEASUREMENTS (Male / Female) Normal Values 2D ECHO LV Diastolic Diameter PLAX 4.3 cm 4.2 - 5.9 / 3.9 - 5.3 cm LV Systolic Diameter PLAX 2.9 cm IVS Diastolic Thickness 1.5 cm 0.6 - 1.0 / 0.6 - 0.9 cm LVPW Diastolic Thickness 1.3 cm 0.6 - 1.0 / 0.6 - 0.9 cm LV Relative Wall Thickness 0.7 RV Internal Dim ED PLAX 3.8 cm LA Systolic Diameter LX 4.1 cm 3.0 - 4.0 / 2.7 - 3.8 cm LV Diastolic Volume MOD BP 76.1 cm??? 67 - 155 / 56 - 104 cm??? LV Systolic Volume MOD BP 40.6 cm??? - / 19 - 49 cm??? LV Ejection Fraction MOD BP 46.6 % >= 55 % LV Cardiac Index MOD BP 1628.4 cm???/min???m??? LV Diastolic Volume MOD 4C 82.9 cm??? LV Systolic Volume MOD 4C 41.4 cm??? LV Ejection Fraction MOD 4C 50.0 % LV Cardiac Index MOD 4C 1903.9 cm???/min???m??? LV Diastolic Length 4C 7.8 cm LV Systolic Length 4C 6.5 cm LV Diastolic Volume MOD 2C 85.4 cm??? LV Systolic Volume MOD 2C 46.9 cm??? LV Ejection Fraction MOD 2C 45.1 % LV Cardiac Index MOD 2C 1767.9 cm???/min???m??? LV Diastolic Length 2C 8.4 cm LV Systolic Length 2C 7.1 cm LA Volume 74.3 cm??? 18 - 58 / 22 - 52 cm??? LA Volume Index 42.1 cm???/m??? 16 - 28 cm???/m??? M-MODE Aortic Root Diameter MM 4.2 cm MV E Point Septal Separation 0.8 cm AV Cusp Separation MM 2.2 cm DOPPLER AV Peak Velocity 172.2 cm/s AV Peak Gradient 11.9 mmHg AV Mean Velocity 119.7 cm/s AV Mean Gradient 6.6 mmHg AV Velocity Time Integral 39.2 cm LVOT Peak Velocity 91.5 cm/s LVOT Peak Gradient 3.4 mmHg LVOT Velocity Time Integral 20.7 cm MV Peak Velocity 166.1 cm/s MV Peak Gradient 11.0 mmHg MV Mean Velocity 90.0 cm/s MV Mean Gradient 3.9 mmHg MV Velocity Time Integral 37.4 cm MV Area PHT 2.0 cm??? Mitral E Point Velocity 128.9 cm/s Mitral A Point Velocity 147.3 cm/s Mitral E to A Ratio 0.9 MV Deceleration Time 372.4 ms TR Peak Velocity 258.9 cm/s TR Peak Gradient 26.8 mmHg Right Ventricular Systolic Press 31.8 mmHg FINDINGS Left Ventricle Left ventricular ejection fraction is estimated at 50-55 %. Left ventricular cavity size normal. Moderately increased septal wall thickness. Mildly increased posterior wall thickness. Mildly decreased left ventricular ejection fraction. Right Ventricle Mild right ventricular dilatation. Right ventricular systolic pressure within normal limits. Right Atrium Normal right atrial size. No right atrial thrombus or mass seen. Left Atrium Mildly increased left atrial diameter. Severely increased left atrial volume. Mildly increased left atrial area. Mitral Valve Mitral valve thickened. Moderate mitral annular calcification. . Mild mitral regurgitation. Aortic Valve Normally functioning bioprosthetic aortic valve without stenosis with a peak velocity of 1.7 m/s, peak gradient 12 mmHg, mean gradient 7 mmHg. Trace to mild aortic regurgitation. Tricuspid Valve Structurally normal tricuspid valve. Mild tricuspid regurgitation. Pulmonic Valve Structurally normal pulmonic valve. No pulmonic regurgitation. Pericardium Moderate pericardial effusion. Aorta Moderate aortic dilatation at the level of the sinuses of valsalva 42 mm CONCLUSIONS Normal LV function Atypical septal motion Moderate pericardial effusion Normally functioning bioprosthetic valve in aortic position Moderate aortic root dilatation Previewed by: Dr. Ang Lorenzana MD (Electronically Signed) Final Date: 01 October 2023 17:34
[2023-10-01] MEDS: methylPREDNISolone SOD SUCCI 125 MG/2 ML VIAL IV STA (18:09)
[2023-10-01] MEDS: FAMOTIDINE 20 MG/2 ML VIAL IV STA (18:09)
[2023-10-01] MEDS: diphenhydrAMINE 50 MG/ML 1 ML VIAL IVP STA (18:09)
[2023-10-01] MEDS: ATORVASTATIN 80 MG TAB PO SCH (20:19)
[2023-10-01 21:14] LABS: Glucose,Whole Blood 192 mg/dL (70-110)
[2023-10-01 23:46] VITALS: BP 136/76; PULSE 76; RESP 18; TEMP 98.1
--- NOTE | 2023-10-03 09:01 | CDI ---
Documentation Clarification Form Date: 10/03/23 From: Ami Aguilar Admit Date: 09/30/2023 08:28:00 PM Patient Name: Kaila Cunningham Visit Number: [id number] Discharge Date: 10/02/2023 01:39:00 AM ATTENTION: The Clinical Documentation Specialists (CDI) and [facility] Coding Staff appreciate your assistance in clarifying documentation. Please respond to the clarification below the line at the bottom and electronically sign. The CDI & [facility] Coding staff will review the response and follow-up if needed. Please note: Queries are made part of the Legal Health Record. If you have any questions, please contact the author of this message via ITS. Dr. William Cancino, Your patient has troponin level(s) of:0.025 (09/29), 0.035 (09/29), 0.037 (09/30). Please clarify if there is an additional diagnosis and/or clinical significance related to this value. Patient history/risk factors: s/p CABG & Aortic valve replacement, COPD, CAD w unstable angina, HTH w CHF, T2DM w neuropathy, depression Clinical indicators: Per cardio consult: Chest painwithelevated troponins, rule outacute coronary syndrome. Elevated troponinspossibly due toacute kidney injury Treatment: Echo, heparin drip, Cardizem drip Is there an additional diagnosis and/or clinical significance related to the above lab result/information: [x ] Type 2 AR due to (specify cause __atrial fibrillation and demand ischemia__) [ ] Non-ischemic with acute myocardial injury [ ] No additional diagnosis/Not clinically significant [ ] Other, please specify [ ] Unable to determine Reference: [employer] Fourth [place] Definition of Myocardial Infraction Elevated Cardiac Troponin >99th percentile with Troponin rise and/or fall With Acute ischemia Acute Myocardial Infarction Atherosclerosis thrombosis Type I AR Oxygen supply and demand imbalance Type II AR (Please indicate etiology) Without acute ischemia Acute Myocardial Injury (Template Last Reviewed: October 2022) MTDD
== END 2023-10-02 01:39 | disposition short-term general hospital (02) | DRG 281 ==
LOC: EC 16:47 → 3SCARD 20:27 → OBSVTOIN 20:28 → 3SCARD 20:53
PROVIDERS: ADMIT Internal Medicine; ATTEND Internal Medicine
PROC: 3E033RZ Introduction of Antiarrhythmic into Peripheral Vein, Percutaneous Approach (ICD-10-PCS; principal; 2023-09-30)
DX: I48.91 Unspecified atrial fibrillation (principal); I25.110 Atherosclerotic heart disease of native coronary artery with unstable angina pectoris; I21.A1 Myocardial infarction type 2; N17.9 Acute kidney failure, unspecified; R45.851 Suicidal ideations; I11.0 Hypertensive heart disease with heart failure; E11.40 Type 2 diabetes mellitus with diabetic neuropathy, unspecified; I50.9 Heart failure, unspecified; Z95.2 Presence of prosthetic heart valve; J44.9 Chronic obstructive pulmonary disease, unspecified; I35.9 Nonrheumatic aortic valve disorder, unspecified; F32.A Depression, unspecified; Z28.310 Unvaccinated for COVID-19; E78.5 Hyperlipidemia, unspecified; F43.10 Post-traumatic stress disorder, unspecified; F41.0 Panic disorder [episodic paroxysmal anxiety]; Z79.84 Long term (current) use of oral hypoglycemic drugs; Z79.891 Long term (current) use of opiate analgesic; Z79.899 Other long term (current) drug therapy; Z95.1 Presence of aortocoronary bypass graft; Z88.0 Allergy status to penicillin; Z88.8 Allergy status to other drugs, medicaments and biological substances; Z88.1 Allergy status to other antibiotic agents; Z91.041 Radiographic dye allergy status; Z86.14 Personal history of Methicillin resistant Staphylococcus aureus infection
CPT/HCPCS: 36415; 71046; 80053; 80061; 80306; 80320; 83735; 84484; 85025; 85379; 85610; 85730; 93005; 93306; 93970; 96365; 96366; 96367; 96375; 99285